=== PATIENT | female | born 1940 | race Asian ===

== ENCOUNTER → 2020-06-15 09:38 | Outpatient (CLI) | payer MEDICARE, MEDICAID, SELFPAY ==
[2020-06-16 06:04] LABS: COVID19 Sendout Not Detected (Not Detect)
== END ==
PROVIDERS: PCP Physician Assistant Medical; Visit Provider Physician Assistant
DX: Z11.59 Encounter for screening for other viral diseases (principal)
CPT/HCPCS: 87635

== ENCOUNTER → 2020-06-18 07:18 | Outpatient (CLI) | payer MEDICARE, MEDICAID, SELFPAY ==
--- NOTE | 2020-06-18 | DI.ECHO.S_ITS ---
[facility]---------+ [facility] +---------+ : : [address] : [address] [address] : : : : [id number] : : : : Phone: [phone]+ Echocardiogram Report + + :Name: RUSSELL MIRANDA Study Date: 06/18/2020 Height: 59 in : :[facility] Weight: 131 lb : : Gender: Female BSA: 1.5 m2 : :: 1940 Age: 80 yrs BP: 172/76 mmHg: :Reason For Study: CHEST PAIN : :Ordering Physician: LUIS, : :JAYDEN Performed By: Isaura Guadarrama : :Referring: JAYDEN SMITH : + + Interpretation Summary The left ventricle is normal in size. The left ventricle is hyperdynamic. The ejection fraction is estimated to be 70-75%. The right ventricle is normal in size and function. No significant valvular pathology seen. The IVC is of normal diameter and collapses greater than 50% with a sniff. This suggests a low right atrial pressure of 3 mm Hg. Procedure: A two-dimensional transthoracic echocardiogram with color flow and Doppler was performed. The study quality was technically adequate. Comparison is made with the echocardiogram of 03/24/2016. The patient was in sinus rhythm with heart rates between 78-85 bpm during the exam. The patient had occasional PACs during the exam. Left Ventricle: Proximal septal thickening is noted. The left ventricle is normal in size. There is no echo evidence for significant left ventricular outflow tract obstruction. There is no thrombus. The ejection fraction is estimated to be 70-75%. The left ventricle is hyperdynamic. There are no focal wall motion abnormalities. Diastolic parameters suggest a relaxation abnormality of the left ventricle, consistent with probable normal filling pressures. Right Ventricle: The right ventricle is normal in size and function. Atria: The left atrium is mildly dilated. The left atrium has mildly decreased in size since the prior echo exam. The right atrium is normal in size. There is no Doppler evidence for an interatrial shunt. Mitral Valve: There is mild mitral annular calcification. There is trace mitral regurgitation. Aortic Valve: The aortic valve is trileaflet. The aortic valve opens well. The aortic valve is slightly calcified. There is no aortic valve stenosis. There is trace aortic regurgitation. Tricuspid Valve: The tricuspid valve is normal in structure and function. Pulmonary artery pressures cannot be estimated because of the lack of a measurable TR jet velocity but the IVC suggests a CVP of around 3 mmHg. There is trace tricuspid regurgitation. Pulmonic Valve: The pulmonic valve is not well visualized. The pulmonic valve is not well seen, but is grossly normal. There is no pulmonic valvular regurgitation. Great Vessels: The aortic root is normal size. The ascending aorta is normal in size. The IVC is of normal diameter and collapses greater than 50% with a sniff. This suggests a low right atrial pressure of 3 mm Hg. Pericardium/ Pleura There is no pericardial effusion. There is no pleural effusion. MMode/2D Measurements & Calculations LVIDd: 4.6 cm LVOT diam: 2.0 cm LVIDs: 2.9 cm Ao root diam: 2.8 cm FS: 36.0 % asc Aorta Diam: 2.8 cm EPSS: 0.35 cm IVSd: 0.89 cm LVPWd: 0.87 cm LV post. diameter/BSA (cm/m^2): 3.0 LV sys. diameter/BSA (cm/m^2): 1.9 LA A2 area: 18.4 cm2 RA long axis: 4.8 cm LA A4 area: 16.4 cm2 RA area: 13.7 cm2 LA length (vol): 4.8 cm RA vol: 33.7 ml LA vol: 53.8 ml RA : 21.9 ml/m2 LA vol index: 34.9 ml/m2 IVC diam: 1.8 cm RVD1 (basal): 3.1 cm TAPSE: 2.2 cm Doppler Measurements & Calculations Ao V2 max: 182.3 cm/sec LVOT Max Raúl: 172.7 cm/sec Ao V2 mean: 122.1 cm/sec LV V1 max P.9 mmHg Ao max P.3 mmHg LV V1 VTI: 35.0 cm Ao mean P.9 mmHg TIANNA(I,D): 2.9 cm2 Ao V2 VTI: 36.2 cm TIANNA(V,D): 2.9 cm2 sev ratio: 0.97 TIANNA indexed to BSA (cm^2/m^2): 1.9 MV E max raúl: 62.8 cm/sec PA V2 max: 103.2 cm/sec MV A max raúl: 111.2 cm/sec PA V2 mean: 66.9 cm/sec MV E/A: 0.57 PA mean P.1 mmHg Med Peak E' Raúl: 5.3 cm/sec PA pr(Accel): 29.3 mmHg E/E' med: 11.8 Lat Peak E' Raúl: 6.0 cm/sec E/E' lat: 10.4 E/e' average: 11.1 MV dec time: 0.29 sec SV(LVOT): 106.7 ml Reading Physician:06:32 PM
--- NOTE | 2020-06-18 17:52 | DI.NM.S_ITS ---
DATE OF SERVICE: 06/18/2020 PROCEDURE: Exercise perfusion study. INDICATION: Chest pain with underlying hypertension and hyperlipidemia. RADIOPHARMACEUTICAL: 25.1 millicurie technetium-99m Myoview IV was injected at stress and 11.2 millicurie technetium-99m Myoview IV was injected at rest. CARDIAC STRESS: The patient underwent exercise perfusion study under the supervision of an attending staff. She walked on Christos protocol for 4 minutes 31 seconds and achieved 89 percent of target heart rate. The patient achieved 7 METS of workload and functional aerobic impairment 0 percent. No chest pain or anginal symptoms. Baseline EKG revealed sinus rhythm. During stress, there was some nonspecific upsloping ST depression in inferior lateral leads. No significant arrhythmia is seen. RAW DATA: There is adequate myocardial uptake. GATED STUDY: stress LV ejection fraction 90 percent without any obvious wall motion abnormalities. Resting end-diastolic volume 66 mL. TID ratio 1.05, which is within normal limits. Lung/heart ratio 0.32, which is within normal limits. MYOCARDIAL PERFUSION: There was normal myocardial perfusion. CONCLUSION: The patient has a normal myocardial perfusion study. Walked on Christos protocol for 4 minutes 31 seconds. Achieved 7 METS of workload. Normal hemodynamic response. No ischemic symptoms. Overall, this is a low risk myocardial perfusion scan. Seema Ramesh - Nyasia/flavia doc#: [id number]/job#: [id number] dd: 06/18/2020 16:58:00 dt: 06/18/2020 17:35:00 DICTATING /COPIES TO: Abril Juarez MD COPIES MNE: LUDMILA;
== END ==
PROVIDERS: PCP Physician Assistant Medical; Referring Provider Internal Medicine Cardiovascular Disease; Visit Provider Internal Medicine Cardiovascular Disease
DX: R07.89 Other chest pain (principal); I10 Essential (primary) hypertension; E78.5 Hyperlipidemia, unspecified
CPT/HCPCS: 78452; 93017; 93306; A9502

== ENCOUNTER → 2022-09-18 12:36 | Outpatient (CLI) | payer OTHER, SELFPAY ==
--- NOTE | 2022-09-18 | DI.MRI.S_ITS ---
PROCEDURE: MR LUMBAR SPINE WO CON INDICATIONS: LUMBAR FORAMINAL STENOSIS TECHNIQUE: Noncontrast sagittal T1 spin echo and T2 fast echo, sagittal STIR, and T2 fast spin echo through the lumbar spine. In cases with scoliosis, additional coronal T2 fast spin echo may be performed. COMPARISON: None. FINDINGS: Image quality: Excellent. Alignment and Curvature: There is normal bony alignment. Convex right lumbar scoliosis present. Bone Marrow: Marrow is of normal overall signal. No acute vertebral body compression fractures. Spinal Cord: Conus medullaris terminates at the L1 level. Visualized cord demonstrates normal signal and size. Paraspinous Soft Tissues: No paravertebral masses. T12-L1: Normal appearance. L1-L2: Normal appearance. L2-L3: Normal appearance. L3-L4: Disc space narrowing and circumferential disc bulge with hypertrophic facet joints results in mild central stenosis. Severe left and mild right foraminal stenosis L4-L5: Disc space narrowing with circumferential disc bulge results in moderate central stenosis. Severe right and moderate left foraminal stenosis L5-S1: Disc height is preserved. No central stenosis. Severe right and moderate left foraminal stenosis IMPRESSION: Degenerative disc disease and arthropathy results in varying degrees of central and foraminal stenosis including moderate central stenosis at L4-5 and severe foraminal stenosis L3-4, L4-5 and L5-S1 Approved by: Bijan Marquis M.D. on 09/18/2022 at 17:59
== END ==
PROVIDERS: PCP Physician Assistant Medical; Referring Provider Physical Medicine & Rehabilitation Pain Medicine; Visit Provider Physical Medicine & Rehabilitation Pain Medicine
DX: M48.061 Spinal stenosis, lumbar region without neurogenic claudication (principal); M48.07 Spinal stenosis, lumbosacral region; M51.36 Other intervertebral disc degeneration, lumbar region; M51.37 Other intervertebral disc degeneration, lumbosacral region; M47.816 Spondylosis without myelopathy or radiculopathy, lumbar region; M47.817 Spondylosis without myelopathy or radiculopathy, lumbosacral region
CPT/HCPCS: 72148

== ENCOUNTER → 2023-10-13 13:41 | Outpatient (CLI) | payer OTHER, MEDICAID, SELFPAY ==
--- NOTE | 2023-10-13 | DI.RAD.S_ITS ---
PROCEDURE: FL BARIUM SWALLOW INDICATIONS: NECK MASS/THYROIDECTOMY/DYSPHAGIA COMPARISON: None. FINDINGS: Function: There is severe esophageal dysmotility with pooling of contrast in the upper mid esophagus. No elicited gastroesophageal reflux. The calibrated barium tablet stuck in the distal esophagus and never passed into the stomach. Morphology: Air-contrast images demonstrate normal mucosal morphology. Single contrast views show no esophageal strictures, extrinsic mass effects, or diverticula. Limited images of the stomach demonstrate normal appearance. IMPRESSION: 1. Severe esophageal dysmotility with pooling of contrast in the upper and mid esophagus. No obstructing mass is seen by fluoroscopy. 2. The calibrated barium tablet stuck in the distal esophagus and never passed into the stomach. Dictated by: Eagle Taylor M.D. on 10/13/2023 at 15:41 Approved by: Eagle Taylor M.D. on 10/13/2023 at 15:43
== END ==
PROVIDERS: PCP Family Medicine; Referring Provider Otolaryngology; Visit Provider Otolaryngology
DX: K22.4 Dyskinesia of esophagus (principal); R22.1 Localized swelling, mass and lump, neck; R13.10 Dysphagia, unspecified; E89.0 Postprocedural hypothyroidism
CPT/HCPCS: 74220

== ENCOUNTER → 2023-12-07 12:42 | Outpatient (CLI) | payer OTHER, MEDICAID, SELFPAY ==
--- NOTE | 2023-12-07 12:44 | DI.US.S_ITS ---
PROCEDURE: US THYROID INDICATIONS: Postprocedural hypothyroidism TECHNIQUE: Real-time scanning was performed of the thyroid gland, with image documentation. COMPARISON: None. FINDINGS: Right: Thyroid lobe measures 6.1 x 2.3 x 2.3 cm, and is heterogeneous in echotexture. Left: Thyroid lobe measures 4.5 x 2.7 x 2.0 cm, and is heterogeneous in echotexture. Isthmus: 1.4 cm thick. Nodule number: 1 Location: Right-side of isthmus Size: 2.6 x 2.7 x 1.4 cm Composition: Predominantly solid Echogenicity: Hypoechoic Shape: Wider than tall Margins: Smooth Echogenic foci: None Total points: 4 ACR TI-RADS category: Moderately suspicious. Nodule number: 2 Location: Upper pole right thyroid lobe Size: 1.7 x 1.5 x 1.0 cm. Composition: Spongiform. Echogenicity: Hypoechoic Shape: Wider than tall Margins: Ill-defined Echogenic foci: Non Total points: 4 ACR TI-RADS category: Moderately suspicious Nodule number: 3 Location: Mid pole right thyroid lobe Size: 2.5 x 2.1 x 2.4 cm Composition: Predominantly solid Echogenicity: Hypoechoic Shape: Taller than wide Margins: Smooth Echogenic foci: None Total points: 7 ACR TI-RADS category: Highly suspicious. Nodule number: 4 Location: Upper pole left thyroid lobe. Size: 1.7 x 2.0 x 1.3 cm Composition: Predominantly solid Echogenicity: Hypoechoic Shape: Wider than tall Margins: Smooth Echogenic foci: None Total points: 4 ACR TI-RADS category: Moderately suspicious. Nodule number: 5 Location: Mid pole left thyroid lobe. Size: 1.1 x 1.1 x 1.0 Composition: Predominantly cystic Echogenicity: Hypoechoic Shape: Wider than tall Margins: Smooth Echogenic foci: None Total points: 3 ACR TI-RADS category: Mildly suspicious. Nodule number: 6 Location: Lower pole left thyroid lobe. Size: 1.1 x 1.5 x 1.2 cm Composition: Predominantly cystic Echogenicity: Hypoechoic Shape: Wider than tall Margins: Smooth Echogenic foci: None Total points: 3 ACR TI-RADS category: Mildly suspicious. IMPRESSION: Bilateral thyroid lobe nodules as described above. Suggest fine-needle aspiration of nodules 1 through 4 based on following recommendations. ACR TI-RADS definitions and recommendations: TI-RADS 1 (benign): 0 points. FNA not needed. TI-RADS 2 (not suspicious): 2 points. FNA not needed. TI-RADS 3 (mildly suspicious): 3 points. * FNA if 2.5 cm or larger, follow up if 1.5 cm or larger (at 1, 3, and 5 years). TI-RADS 4 (moderately suspicious): 4-6 points. * FNA if 1.5 cm or larger, follow up if 1 cm or larger (at 1, 2, 3, and 5 years). TI-RADS 5 (highly suspicious): 7 points or more. * FNA if 1 cm or larger, follow up if 0.5 cm or larger (every year for 5 years). Dictated by: Abiodun Alfonso M.D. on 12/08/2023 at 11:10 Approved by: Abiodun Alfonso M.D. on 12/08/2023 at 11:16
== END ==
LOC: US 12:42
PROVIDERS: PCP Family Medicine; Referring Provider Otolaryngology; Visit Provider Otolaryngology
DX: E04.2 Nontoxic multinodular goiter (principal); R22.1 Localized swelling, mass and lump, neck; E89.0 Postprocedural hypothyroidism
CPT/HCPCS: 76536

== ENCOUNTER → 2023-12-23 14:12 | Outpatient (CLI) | payer OTHER, MEDICAID, SELFPAY ==
--- NOTE | 2023-12-23 | PATH_ITS ---
Note [facility] Accession Number: [id number] TESTS RESULT FLAG UNITS REF RANGE LAB Clinician Provided Cytology Information No. of containers..01 Other (Miscellaneous) No. of containers..00 Previously Prepared Cytology Slide Source: RIGHT THYROID NODULE #3 RIGHT INFERIOR (B) DIAGNOSIS: 01 RIGHT THYROID NODULE #3 RIGHT INFERIOR (B), FINE NEEDLE ASPIRATION. INCONCLUSIVE. BETHESDA CATEGORY III. ATYPIA OF UNDETERMINED SIGNIFICANCE (AUS), SEE COMMENT. COMMENT: EXAMINATION OF THE SMEARS REVEALS A MILDLY CELLULAR ASPIRATE, COMPOSED OF COLLOID, MACROPHAGES AND BENIGN FOLLICULAR GROUPS WITH FOCAL HURTHLE CELL CHANGES. IN ADDITION, THERE ARE RARE GROUPS WHERE MILD NUCLEAR ENLARGEMENT, OVERLAPPING, AND NUCLEAR MEMBRANE IRREGULARITIES ARE NOTED. INTRANUCLEAR PSEUDOINCLUSIONS ARE NOT SEEN. THE RISK OF MALIGNANCY IN THE BETHESDA CATEGORY III IS 5-15%. RE-ASPIRATION IS SUGGESTED. ADDITIONAL MOLECULAR TESTING WILL BE PERFORMED ON THE SUBMITTED RNA VIAL FOR FURTHER EVALUATION. 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) Gross description: 01 30 CC, RED, CLEAR RECIEVED: IN CYTOLYT WITH 5 ALCOHOL FIXED AND 5 QUICK STAINED SLIDES ALSO 1 RNA VIAL WILL ON 08-21-2025.VO /VDU 12/24/2023 0559 Local FLAG LEGEND: L-Low Normal,H-High Normal,LL-Alert Low,HH-Alert High <-Panic Low,>-Panic High,A-Abnormal,AA-Critical Abnormal Performed at: 01 =[facility] [address] [place] [address] [address], [place] [address] Yo Bey MD, Performed at: 01 [facility] [address] [place] [address] [address], [place], [place] [id number] MD Yo Bey MD Phone: [phone]
--- NOTE | 2023-12-23 | PATH_ITS ---
Note [facility] Accession Number: [id number] TESTS RESULT FLAG UNITS REF RANGE LAB Clinician Provided Cytology Information No. of containers..01 Other (Miscellaneous) No. of containers..00 Previously Prepared Cytology Slide Source: RIGHT THYROID NODULE #1 ISTHMUS (A) DIAGNOSIS: 01 RIGHT THYROID NODULE #1 ISTHMUS (A), FINE NEEDLE ASPIRATION. NEGATIVE FOR MALIGNANT CELLS. ADEQUATE FOR EVALUATION. FOLLICULAR GROUPS ARE PRESENT. BENIGN FOLLICULAR (GOITEROUS) NODULE (BETHESDA CATEGORY II), SEE COMMENT. COMMENT: MICROSCOPIC EXAMINATION REVEALS A MILDLY CELLULAR ASPIRATE, COMPOSED OF COLLOID, FOLLICULAR GROUPS WITHOUT SIGNIFICANT CYTOLOGIC OR ARCHITECTURAL ATYPIA, AND BACKGROUND MACROPHAGES. THESE FINDINGS SUPPORT A BENIGN FOLLICULAR (GOITEROUS) NODULE. CORRELATION WITH CLINICAL AND RADIOGRAPHIC FINDINGS IS RECOMMENDED. ACCORDING TO THE BETHESDA REPORTING SYSTEM FOR THYROID CYTOPATHOLOGY, THE RISK OF MALIGNANCY IN THE CATEGORY BENIGN-CATEGORY II IS 0-3%; THEREFORE RECOMMEND CONTINUED ULTRASOUND SURVEILLANCE WITH REPEAT FNA IF THE NODULE SIGNIFICANTLY INCREASES IN SIZE. Pathologist ICD10: 01 E04.2, E89.0, R22.1 Signed out by: Sly Hill MD, Pathologist NPI- [id number] Performed by: Sly Daniel, Revenue Investigator ([facility]) Gross description: 01 30 CC, RED, CLEAR RECIEVED: IN CYTOLYT WITH 5 ALCOHOL FIXED AND 5 QUICK STAINED SLIDES ALSO 1 RNA VIAL WILL ON 08-21-2025.VO /VDU 12/24/2023 0559 Local FLAG LEGEND: L-Low Normal,H-High Normal,LL-Alert Low,HH-Alert High <-Panic Low,>-Panic High,A-Abnormal,AA-Critical Abnormal Performed at: 01 =[facility] [address] [place] [address] [address], [place] [address] Yo Bey MD, Performed at: 01 [facility] [address] [place] [address] [address], [place], [place] [id number] MD Yo Bey MD Phone: [phone]
--- NOTE | 2023-12-23 14:13 | DI.US.S_ITS ---
PROCEDURE: US FINE NEEDLE ASPIRATION x 2 INDICATIONS: Postprocedural hypothyroidism TECHNIQUE: The indications, alternatives, benefits, risks, and complications of the procedure were explained to the patient. Written informed consent was obtained and placed in the chart. The area of interest was examined sonographically and a sites were chosen for ultrasound guided percutaneous sampling. The skin was prepared and draped in the usual fashion, and anesthetized with 1% lidocaine infiltrated from the skin down to the lesion. Multiple passes were then performed, with contents emptied into an appropriate pathology specimen container. A bandage was applied to the area of access at completion of the study. COMPARISON: None. FINDINGS: Location(s) of lesion(s) sampled: Isthmus and right lower lobe thyroid ; nodules 1 and 3 respectively fro [place]: 25 gauge hypodermic needles. Number of passes: 5 through each nodule Medications: 1% lidocaine for local anaesthesia. Complications: None. IMPRESSION: Successful ultrasound-guided isthmus and right lower lobe thyroid fine needle aspirations, with cytology results pending for both nodules. Dictated by: Jasiel England M.D. on 12/24/2023 at 13:41 Approved by: Jasiel England M.D. on 12/24/2023 at 14:03
== END ==
PROVIDERS: PCP Family Medicine; Referring Provider Otolaryngology; Visit Provider Otolaryngology
DX: R22.1 Localized swelling, mass and lump, neck (principal); E89.0 Postprocedural hypothyroidism; E04.2 Nontoxic multinodular goiter
CPT/HCPCS: 10005; 10006